=== PATIENT | male | born 1980 | race African-American/Black ===

== ENCOUNTER 2022-01-14 13:39 | Emergency (ER) | payer OTHER ==
[~2022-01-14] VITALS: Ht 172.7 cm; Wt 65.8 kg
--- NOTE | 2022-01-14 13:40 | NUR ---
Received pt 41 yrs male pt here for evaluation of suger [place]
[2022-01-14 14:45] LABS: SITE, VBG Right Radial; VBG COHb 0.1 %; VBG MetHb 0.4 %; VBG O2Hb 92.4 %; VENT MODE, VBG ROOM AIR
--- NOTE | 2022-01-14 14:45 | NUR ---
BLOOD DRAWN AND SENT TO LAB
[2022-01-14] MEDS: IV NS 0.9% 1,000 ML BAG IV ONE ×2 (14:54→15:55)
[2022-01-14 15:08] LABS: BASOPHILS % (AUTO) 0.3 % (0.0-2.0); HEMATOCRIT 26 % (39-51); HEMOGLOBIN 8.3 g/dL (13.5-17.5); LYMPHOCYTES # (AUTO) 0.5 K/uL (0.8-4.8); LYMPHOCYTES % (AUTO) 7.7 % (20.0-44.0); MEAN CORPUSCULAR HGB CONC 32 g/dl (31.0-36.0); MEAN CORPUSCULAR VOLUME 98 fL (80-96); MONOCYTES # (AUTO) 0.4 K/uL (0.1-1.30); MONOCYTES % (AUTO) 6.1 % (2.0-12.0); NEUTROPHILS # (AUTO) 5.8 K/uL (1.8-8.9); NEUTROPHILS % (AUTO) 85.9 % (43.0-81.0); PLATELET COUNT (AUTO) 391 K/uL (150-450); RED BLOOD CELL COUNT(AUTO) 2.68 MIL/uL (4.5-6.0); WHITE BLOOD COUNT (AUTO) 6.7 K/uL (4.3-11.0)
--- NOTE | 2022-01-14 15:15 | NUR ---
UA SENT TO LAB
[2022-01-14 15:20] LABS: MAGNESIUM 1.9 mg/dL (1.8-2.4); PHOSPHORUS 3.2 mg/dL (2.5-4.9)
[2022-01-14 15:25] LABS: ALANINE AMINOTRANSFERASE 138 U/L (12-78); ALBUMIN 2.1 g/dL (3.4-5.0); ALKALINE PHOSPHATASE 310 U/L (46-116); ASPARTATE AMINOTRANSFERASE 56 U/L (15-37); BILIRUBIN,DIRECT 0.1 mg/dL (0.0-0.2); BILIRUBIN,TOTAL 0.3 mg/dL (0.2-1.0); CARBON DIOXIDE 26 mmol/L (21-32); CHLORIDE 102 mmol/L (98-107); CREATININE 1.3 mg/dL (0.6-1.3); LIPASE 37 U/L (73-393); POTASSIUM 4.9 mmol/L (3.5-5.1); SODIUM SERUM 136 mmol/L (136-145); TOTAL PROTEIN, SERUM 7.4 g/dL (6.4-8.2); UREA NITROGEN, BLOOD 12 mg/dL (7-18)
[2022-01-14 15:30] LABS: GLUCOSE 680 mg/dL (74-106)
[2022-01-14 16:36] LABS: BILIRUBIN,URINE NEGATIVE (NEGATIVE); COLOR,URINE YELLOW (YELLOW); LEUKOCYTE ESTERASE ,URINE NEGATIVE (NEGATIVE); NITRITE, URINE NEGATIVE (NEGATIVE); PH,URINE 5.5 (5.0-8.0); PROTEIN,URINE NEGATIVE (NEGATIVE); UGLUCOSE 3+ mg/dL (NEGATIVE); UROBILINOGEN,URINE 0.2 EU/dL (0.2)
[2022-01-14] MEDS: INSULIN REGULAR, HUMAN 100 UNITS in IV NS 0.9% 100 ML IV PRN ×2 (16:42)
--- NOTE | 2022-01-14 16:42 | NUR ---
BS HI STERTED INSULINE 10 UNIT/HR INFUSED AND PATENT MONITER BS Q 1 HR
[2022-01-14] MEDS: IV PREMIX NS +20MEQ KCL 1 L IV PRN (16:46)
--- NOTE | 2022-01-14 16:50 | NUR ---
call frm dr rod, patient is stable for tx and not in dka
--- NOTE | 2022-01-14 17:00 | NUR ---
QUINCY AKERS SENT TO LAB
[2022-01-14 17:05] LABS: CALCIUM, SERUM 7.7 mg/dL (8.5-10.1); MAGNESIUM 2.2 mg/dL (1.8-2.4); PHOSPHORUS 3.1 mg/dL (2.5-4.9)
[2022-01-14 17:06] LABS: BACTERIA,URINE Rare /HPF (None Seen); RBC,URINE 0-2 /HPF (0-2); SQUAMOUS EPITHELIAL CELL,UR Few /HPF (None Seen)
[2022-01-14] MEDS ORDERED: METF-442 PO (17:46)
[2022-01-14] MEDS ORDERED: HYDR-4303 PO (17:46)
[2022-01-14] MEDS ORDERED: INSU100V11 SQ (17:46)
[2022-01-14] MEDS ORDERED: GLIP10TA11 PO (17:46)
[2022-01-14] MEDS ORDERED: INSU100V7 SQ (17:46)
[2022-01-14] MEDS ORDERED: LORA-259 PO (17:46)
[2022-01-14] MEDS ORDERED: GABA800T11 PO (17:46)
[2022-01-14] MEDS ORDERED: METH5TAB2 PO (17:46)
[2022-01-14] MEDS ORDERED: LISI2.5T2 PO (17:46)
[2022-01-14 18:23] LABS: CALCIUM, SERUM 7.9 mg/dL (8.5-10.1); CREATININE 0.9 mg/dL (0.6-1.3); MAGNESIUM 1.8 mg/dL (1.8-2.4); PHOSPHORUS 2.3 mg/dL (2.5-4.9); POTASSIUM 4.1 mmol/L (3.5-5.1)
--- NOTE | 2022-01-14 19:02 | NUR ---
BS 136MG/LD HOLD INSULIN DRIP DR. MAYFIELD NOTEFED DINNER OBTENDED AND EAT
[2022-01-14] MEDS ORDERED: HYDROCODONE/APAP 5/325MG TABLET ONE (19:18)
[2022-01-14] MEDS: HYDROCODONE/APAP 5/325MG TABLET PO ONE (19:20)
--- NOTE | 2022-01-14 19:20 | NUR ---
PT AWAKE AND ALERT BREATHING UNABORED TACHYCARDIC ON MONITOR. INSULIN INFUSION PAUSED DUE TO CONTROLLED BLOOD SUGAR.
--- NOTE | 2022-01-14 19:46 | NUR ---
HAND OFF DELMY GRAYSON
[2022-01-14 20:27] LABS: CALCIUM, SERUM 8.1 mg/dL (8.5-10.1); CREATININE 0.7 mg/dL (0.6-1.3); MAGNESIUM 1.9 mg/dL (1.8-2.4); POTASSIUM 3.8 mmol/L (3.5-5.1)
--- NOTE | 2022-01-14 21:12 | NUR ---
POC BG 101
--- NOTE | 2022-01-14 21:16 | NUR ---
Patient does not wish to proceed with medical care recommended by Dr. Mclaughlin. Patient given information related to possible complications, up to and including , which could occur as a result of leaving the hospital at this time. Patient verbalizes understanding of risks involved due to leaving against medical advice. Patient refused to sign AMA form. AMA signed by two RN. IV removed. Catheter intact and site benign. Pressure and 4x4 applied to site. No bleeding noted.
[2022-01-14 21:19] VITALS: BP 148/87
== END 2022-01-14 21:21 | disposition left against medical advice (07) ==
LOC: ER 13:41
DX: E11.65 Type 2 diabetes mellitus with hyperglycemia (principal); R00.0 Tachycardia, unspecified; Z79.4 Long term (current) use of insulin; Z79.84 Long term (current) use of oral hypoglycemic drugs; E87.20 Acidosis, unspecified; Z20.822 Contact with and (suspected) exposure to COVID-19; Z53.29 Procedure and treatment not carried out because of patient's decision for other reasons; I10 Essential (primary) hypertension; F31.9 Bipolar disorder, unspecified; Z91.14 Patient's other noncompliance with medication regimen
CPT/HCPCS: 36415; 80048-TC; 80076-TC; 81001; 82803-TC; 82962-TC; 83605-TC; 83690-TC; 83735-TC; 84100-TC; 85025-TC; 87086-TC; C9803; J1815; J3490; J7030